=== PATIENT | male | born 1950 | race Caucasian/White ===

== ENCOUNTER 2018-07-22 11:24 | Day surgery (SDC) | payer OTHER ==
[2018-07-22] MEDS ORDERED: fentaNYL CITRATE 250 MCG/5 ML VIAL ONE (13:30)
[2018-07-22] MEDS ORDERED: SUCCINYLCHOLINE CHLORIDE 200 MG/10 ML VIAL ONE (13:30)
[2018-07-22] MEDS ORDERED: MIDAZOLAM HCL 2 MG/2 ML SINGLE DOSE VIAL ONE (13:30)
[2018-07-22] MEDS ORDERED: ROCURONIUM BROMIDE 50 MG/5 ML VIAL ONE (13:30)
--- NOTE | 2018-07-22 13:58 | HP ---
History & Physical Update - History History: No Change - Physical Physical: No Change - Assessment Assessment: No Change - Plan Plan: No Change (no changes since visit on 07/06/18)
[2018-07-22] MEDS ORDERED: oxyCODONE HCL 5 MG TABLET PO PRN (14:08)
[2018-07-22] MEDS ORDERED: ONDANSETRON 4 MG/2 ML VIAL IVPUSH PRN (14:08)
[2018-07-22] MEDS ORDERED: LACTATED RINGERS SOLUTION 1,000 ML IV SCH (14:15)
[2018-07-22] MEDS ORDERED: ePHEDrine SULFATE 50 MG/1 ML AMPULE ONE (14:16)
[2018-07-22] MEDS ORDERED: ceFAZolin SODIUM 1 GM VIAL IVPB ONE (14:36)
[2018-07-22] MEDS ORDERED: BUPIVACAINE HCL/PF (5 MG/ML) 30 ML VIAL IJ ONE ×2 (14:54)
[2018-07-22] MEDS ORDERED: PROPOFOL 20 ML ONE (14:58)
[2018-07-22] MEDS ORDERED: PROTAMINE SULFATE 50 MG/5 ML VIAL ONE (14:58)
[2018-07-22] MEDS ORDERED: NEOSTIGMINE METHYLSULFATE 0.5 MG/ML - 10 ML MDV ONE (15:08)
--- NOTE | 2018-07-22 15:26 | OP ---
Operative Note - Note: Operative Date: 07/22/18 Pre-Operative Diagnosis: left inguinal hernia Operation: laparoscopic left inguinal hernia repair with mesh Findings: left direct inguinal hernia Implants: progrip mesh left anatomical Post-Operative Diagnosis: Same as Pre-op Surgeon: Genaro Philip Anesthesiologist/CAUSTIC ROOM OPERATOR: Samantha Aviles Anesthesia: General Estimated Blood Loss (mls): 5 Operative Report Dictated: Yes
--- NOTE | 2018-07-22 15:45 | SURG ---
Surgery Vending Route Driver Note Vending Route Driver: Samantha Aviles PA-C Date of Service: 07/22/18 Diagnosis: left inguinal hernia Procedure: laparoscopic left inguinal hernia repair with mesh I was present for the entirety of the operative procedure. For further detail, please refer to operative report. Visit type - Case Type Case Type: Scheduled - Emergency Emergency Visit: No - New patient This patient is new to me today: Yes Date on this admission: 07/22/18
[2018-07-22 23:04] VITALS: BMI 25.2
--- NOTE | 2018-07-23 07:45 | PN ---
Progress Note (short form) - Note Progress Note: POD 1, s/p Laparoscopic left inguinal hernia repair with mesh Pt seen and examined this morning. States he is feeling well from his surgery. Reports he stayed overnight due to inability to urinate. Has not had this issue in the past after surgery. Endorses some difficulty initiating a stream a few months ago, was seen by his PCP who ran "some blood work to check my prostate" and said everything "is okay". Pt has not seen a Urologist in the apst. Reports nocturia 3-4 times per night. Is tolerating PO, has been oob without issue. Denies cp/sob, n/v/d, calf pain/edema. Vital Signs Temp 98.3 F 07/23/18 06:00 Pulse 74 07/23/18 06:00 Resp 18 07/23/18 06:00 BP 145/81 07/23/18 06:00 Pulse Ox 98 07/22/18 22:52 Intake & Output 07/22/18 07/22/18 07/23/18 11:59 23:59 11:59 Intake Total 1400 Output Total 110 700 Balance 1290 -700 Weight 145 lb Intake: IV 1400 Output: Urine 100 700 Void 100 700 Estimated Blood Loss 10 Other: Voiding Method Urinal Height 5 ft 3.5 in Body Mass Index (BMI) 25.2 Weight Measurement Method Built in [facility] Gen: awake, alert, nad Resp: unlabored on RA Abdo: soft, nt/nd, incisions c/d/i with dermabond in place. A/P: 68 y/o M w/ PMHx htn, now POD 1, s/p POD 1, s/p Laparoscopic left inguinal hernia repair with mesh, c/b post op urinary retention. Pt reports voiding multiple times throughout the night in small amounts for a total of 850ml. This AM (630) pt was noted to have bladder distention and was STC for 700 ml of clear yellow urine. -Flomax 0.4mg qd ordered beginning this AM -Urology consult placed -Continue straight cath prn, bladder scan q6h -Regular diet -oob encouraged -Incentive spiromtery encouraged -B/L SCDS -Pain control as ordered -Bowel regimen as ordered -Will likely be d/c later today pending ability to void d/w attending Dr Loomis
[2018-07-23] MEDS ORDERED: TAMSULOSIN HCL 0.4 MG CAP PO SCH (08:30)
[2018-07-23] MEDS ORDERED: amLODIPine BESYLATE 10 MG TABLET (FP) PO SCH (10:00)
[2018-07-23] MEDS ORDERED: QUINAPRIL HCL 20 MG TABLET (FP) PO SCH (10:00)
--- NOTE | 2018-07-23 12:20 | OP ---
DATE OF OPERATION: 07/22/2018 PREOPERATIVE DIAGNOSIS: Left inguinal hernia. POSTOPERATIVE DIAGNOSIS: Left direct inguinal hernia. PROCEDURE: Laparoscopic repair of left inguinal hernia with mesh. SURGEON: Genaro Philip MD CASH APPLICATIONS CLERK: Samantha Aviles PA-C COMPLICATIONS: None. BLOOD LOSS: Minimal. MESH USED IMPLANT: ProGrip 10 x 15 anatomic and left side. INDICATIONS: This is a 68-year-old male who presents for elective left inguinal hernia repair. Patient was evaluated in the office, history and physical examination performed which concurred with diagnosis, and medical clearance was obtained in preparation for surgery. Risks and benefits were discussed including the need for the use of anesthesia. Patient agreed to proceed as planned. DESCRIPTION OF PROCEDURE: In the operating room, he was placed in supine position. After the induction of general anesthesia, he was prepped and draped in the usual sterile fashion. The operation was begun with a periumbilical incision performed with the scalpel, carried through subcutaneous tissues using cautery. The anterior fascia was exposed on the left side. An incision was made longitudinally on the fascia allowing the retraction of the rectus sheath laterally, and then, the SPACEMAKER II balloon dissector was advanced into the preperitoneal space and insufflated to approximately 500 mL. The balloon was then removed, and a 12-mm port was introduced and insufflation to a pressure of 15 mmHg was accomplished with good exposure of the preperitoneal space. Then, two 5-mm ports were introduced, one in the suprapubic position, and one senior care between the umbilicus and the pubic symphysis. The dissection initially was performed medially to expose the Juan Antonio ligament and reduce what was clearly visualized, direct inguinal hernia defect. The sac was completely released from the transversalis fascia. The defect was clearly visualized along all the superficial margins. It was clearly located medial to the inferior epigastric vessels. At this point, then, the lateral dissection was performed. Care was taken to approach gently by taking down the adhesions and exposing the iliopubic tract completely. The genitofemoral nerve was identified, appropriately protected. Skeletonization of the cord structures was then performed with exposure of the internal ring. Clearly, there was no indirect sac identified. Peritoneal semicircular line was clearly visualized and released on the cord structures. Lipoma of the cords identified and was dissected off the spermatic vessels and spermatic cord. With dissection complete, then, ProGrip mesh of 10 x 15 mm of left anatomic was then introduced, and it was opened gently and methodically to cover both the direct, indirect, and femoral spaces. With the ProGrip mesh then in good position, then, preperitoneal space was infiltrated with Marcaine. The ports were removed under direct vision. The fascia at the umbilical port was closed with 0 Vicryl suture, the skin was closed with 4-0 Monocryl at all port sites. Dermabond was applied. The patient was returned to the recovery room awake and alert and in stable condition. Darrell [id number]
[2018-07-23 14:01] VITALS: BP 146/77; PULSE 76; TEMP 98.1
== END 2018-07-23 17:55 | disposition home or self-care (01) ==
LOC: JASUSAT 11:24 → UNDOADMIN 20:45 → J6S 20:45 → JASUSAT 20:50
PROVIDERS: ATTEND Surgery
PROC: 0YU64JZ Supplement Left Inguinal Region with Synthetic Substitute, Percutaneous Endoscopic Approach (ICD-10-PCS; principal; 2018-07-22 13:00)
DX: K40.90 Unilateral inguinal hernia, without obstruction or gangrene, not specified as recurrent (principal)
CPT/HCPCS: 94760